=== PATIENT | male | born 1965 | race Caucasian/White ===

== ENCOUNTER 2019-04-23 11:08 | Emergency (ER) | payer MEDICAID ==
[~2019-04-23] VITALS: Ht 170.2 cm; Wt 81.6 kg
[~2019-04-23 11:08] MED LIST: ACE3T; IBUP200C3
[2019-04-23 12:03] LABS: Basophils # (auto) 0.1 uL; Basophils % (auto) 0.7 % (0.0-2.0); Eosinophils # (auto) 0.3 uL; Eosinophils % (auto) 4.1 % (0.0-7.0); Hematocrit 47.4 % (41.0-53.0); Hemoglobin 15.9 g/dL (13.5-17.5); Lymphocytes # (auto) 1.7 uL; Lymphocytes % (auto) 22.1 % (10.0-50.0); Mean Corpuscular Hemoglobin 29.2 pg (28.0-32.0); Mean Corpuscular Hgb Conc. 33.6 g/dL (32.0-36.0); Mean Corpuscular Volume 86.8 fL (80.0-100.0); Monocytes # (auto) 0.7 uL; Monocytes % (auto) 9.2 % (0.0-12.0); Neutrophils % (auto) 63.9 % (37.0-80.0); Nucleated Red Blood Cells % 0.1 %; Platelet Count (auto) 253 10^3/uL (140-450); Red Blood Cells 5.46 10^6/uL (4.5-5.90); Red Cell Distribution Width 14.2 % (11.8-14.3); White Blood Cell 7.7 10^3/uL (4.4-10.8)
[2019-04-23 12:22] LABS: Albumin 3.5 g/dL (3.4-5.0); Anion Gap 7 (5-15); Blood Urea Nitrogen 15 mg/dL (7-18); Calcium 8.7 mg/dL (8.5-10.1); Carbon Dioxide 27 mmol/L (21-32); Chloride 108 mmol/L (98-107); Glucose 102 mg/dL (74-106); Magnesium 2.4 mg/dL (1.6-2.6); Potassium 3.5 mmol/L (3.5-5.1); Sodium 142 mmol/L (136-145)
[2019-04-23 12:27] LABS: Alanine Aminotransferase 50 U/L (16-61); Alkaline Phosphatase 98 U/L (45-117); Aspartate Aminotransferase 32 U/L (15-37); BUN/Creatinine Ratio 10.1; Bilirubin, Total 0.5 mg/dL (0.2-1.0); GFR African American 64 mL/min; GFR Non-African American 53 mL/min; Total Protein 7.6 g/dL (6.4-8.2)
[2019-04-23 13:51] VITALS: BP 117/71
== END 2019-04-23 14:02 | disposition home or self-care (01) ==
LOC: ER 11:08
DX: F15.10 Other stimulant abuse, uncomplicated (principal); F17.210 Nicotine dependence, cigarettes, uncomplicated
CPT/HCPCS: 36415; 71046; 80053; 83735; 83880; 84484; 85025; 93005; 94761

== ENCOUNTER 2024-12-02 14:03 | Inpatient (IN) | payer MEDICAID ==
[~2024-12-02] VITALS: Ht 170.2 cm; Wt 93.3 kg
--- NOTE | 2024-12-02 14:22 | ED.PDOC ---
SOB-HPI HPI Comments 59 year old male presents to the ED with chief complaint of SOB. Patient reports that he has been experiencing SOB with associated bilateral leg swelling for the past 2 days. Patient relays that he has history of CHF and COPD. Patient relays that he had a dose of Lasix last night. Patient noted to be 94% on RA, but on 1L of O2 via NC it went up to 95%. Patient denies any N/V/D, chest pain, dizziness, headache, cough, or fever. Time Seen by MD: 14:18 Primary Care Provider: HIEN Reviewed notes: Nurses Notes, Medications, Allergies Information Source: Patient Mode of Arrival: Ambulatory Severity: Moderate Timing: Days Duration: Since onset Context: At Rest PE Risk Factors: None History of: COPD, CHF Prehospital treatment: Oxygen Modifying Factors: Nothing Past Medical History PAST MEDICAL HISTORY: CHF, COPD, HTN Surgical History: Denies all surgeries Family History Family History: Unobtainable Social History Smoker: Cigarettes, Less Than 1 Pack/Day Alcohol: Denies ETOH Use Drugs: Methamphetamine Lives In: Other Constitutional: denies: chills, diaphoresis, fatigue, fever, malaise, sweats, weakness, others EENTM: denies: blurred vision, double vision, ear bleeding, ear discharge, ear drainage, ear pain, ear ringing, eye pain, eye redness, hearing loss, mouth pain, mouth swelling, nasal discharge, nose bleeding, nose congestion, nose pain, photophobia, tearing, throat pain, throat swelling, voice changes, others Respiratory: reports: shortness of breath; denies: cough, hemoptysis, orthopnea, SOB at rest, SOB with excertion, stridor, wheezing, others Cardiovascular: reports: edema; denies: chest pain, dizzy spells, diaphoresis, Dyspnea on exertion, irregular heart beat, left arm pain, lightheadedness, palpitations, PND, syncope, others Gastrointestinal: denies: abdomen distended, abdominal pain, blood streaked bowels, constipated, diarrhea, dysphagia, difficulty swallowing, hematemesis, melena, nausea, poor appetite, poor fluid intake, rectal bleeding, rectal pain, vomiting, others Genitourinary: denies: burning, dysuria, flank pain, frequency, hematuria, incontinence, penile discharge, penile sore, pain, testicle pain, testicle swelling, urgency, others Neurological: denies: dizziness, fainting, headache, left sided numbness, left sided weakness, numbness, paresthesia, pre-existing deficit, right sided num bness, right sided weakness, seizure, speech problems, tingling, tremors, weakness, others Musculoskeletal: denies: back pain, gout, joint pain, joint swelling, muscle pain, muscle stiffness, neck pain, others Integumetry: denies: bruises, change in color, change in hair/nails, dryness, laceration, lesions, lumps, rash, wounds, others Allergic/Immunocompromised: denies: Difficulty Healing, Frequent Infections, Hives, Itching, others Hematologic/Lymphatic: denies: anemia, blood clots, easy bleeding, easy bruising, swollen glands, others Endocrine: denies: excessive hunger, excessive sweating, excessive thirst, excessive urination, flushing, intolerance to cold, intolerance to heat, unexplained weight gain, unexplained weight loss, others Psychiatric: denies: anxiety, bipolar disorder, depression, hopeless, panic disorder, schizophrenia, sleepless, suicidal, others All Other Systems: Reviewed and Negative Physical Exam General Appearance: Moderate Distress, Normal HEENT: Normal ENT Inspection, PERRL/EOMI Neck: Full Range of Motion, Non-Tender, Normal, Normal Inspection Respiratory: Chest Non-Tender, Lungs Clear, No Accessory Muscle Use, No Respiratory Distress, Normal Breath Sounds Cardiovascular: No Edema, No JVD, No Murmur, No Gallop, Normal Peripheral Pulses, Regular Rate/Rhythm Breast Exam: Deferred Gastrointestinal: No Organomegaly, Non Tender, No Pulsatile Mass, Normal Bowel Sounds, Soft Genitalia: Deferred Pelvic: Deferred Rectal: Deferred Extremities: No calf tenderness, Normal capillary refill, Normal range of motion, Non-tender, Swelling (Bilateral lower extremity) Musculoskeletal : Apperance: Normal Neurologic: Alert, door tender II-XII nml as Tested, No Motor Deficits, Normal Affect, Normal Mood, No Sensory Deficits Cerebellar Function: NOT DONE Reflexes: NOT DONE Skin: Dry, Normal Color, Warm Peripheral Pulses: 3+ Radial (R), 3+ Radial (L) Lymphatic: No Adenopathy Was a procedure done? Was a procedure done?: No Differential Dx Differential Diagnosis: Anxiety, Asthma, Bronchitis, CHF, COPD X-Ray, Labs, Meds, VS Vital Signs Date Time Temp Pulse Resp B/P (MAP) Pulse Ox O2 Delivery O2 Flow Rate FiO2 12/02/24 14:30 28 94 Room Air* 0 21 12/02/24 14:12 98.7 110 28 129/95 (106) 95 Lab Test 12/02/24 14:48 Range/Units White Blood Count 7.4 4.4-10.8 10^3/uL Red Blood Count 4.93 4.5-5.90 10^6/uL Hemoglobin 14.6 13.5-17.5 g/dL Hematocrit 45.1 41.0-53.0 % Mean Corpuscular Volume 91.6 80.0-100.0 fL Mean Corpuscular Hemoglobin 29.7 28.0-32.0 pg Mean Corpuscular Hemoglobin Concent 32.4 32.0-36.0 g/dL Red Cell Distribution Width 15.6 H 11.8-14.3 % Platelet Count 278 140-450 10^3/uL Mean Platelet Volume 8.0 6.9-10.8 fL Neutrophils (%) (Auto) 70.4 37.0-80.0 % Lymphocytes (%) (Auto) 16.0 10.0-50.0 % Monocytes (%) (Auto) 11.2 0.0-12.0 % Eosinophils (%) (Auto) 1.8 0.0-7.0 % Basophils (%) (Auto) 0.6 0.0-2.0 % Neutrophils # (Auto) 5.2 1.6-8.6 10 ^3/uL Lymphocytes # (Auto) 1.2 0.4-5.4 10 ^3/uL Monocytes # (Auto) 0.8 0-1.3 10 ^3/uL Eosinophils # (Auto) 0.1 0-0.8 10 ^3/uL Basophils # (Auto) 0 0-0.2 10 ^3/uL Nucleated Red Blood Cells 0.3 % Sodium Level Pending Potassium Level Pending Chloride Level Pending Carbon Dioxide Level Pending Anion Gap Pending Blood Urea Nitrogen Pending Creatinine Pending Glomerular Filtration Rate Calc Pending BUN/Creatinine Ratio Pending Serum Glucose Pending Calcium Level Pending Troponin I High Sensitivity Pending B-Type Natriuretic Peptide Pending Chest XR: FINDINGS: Lines and Tubes: None Lungs: Congestion Pleura: No effusion. No pneumothorax. Cardiomediastinal contours: Cardiomegaly Bones: Unremarkable IMPRESSION: Congestion Patient alert. Complaining of shortness a breath. Bilateral lower extremity swelling. Vitals stable. No acute process. Chest x-ray does show congestion. Was given Lasix. Abdomen is distended. Right-sided heart failure. EKG reviewed does not show any acute changes. Explained to the patient. Continue cardiac monitoring. Images Reviewed?: Images reviewed and evaluated by me Time of 1ST Reevaluation: 15:18 Reevaluation 1ST: Unchanged Patient Education/Counseling: Diagnosis, Treatment Family Education/Counseling: No Family Present Additional Information I reviewed the following notes from patient's past medical encounters: 04/23/19 for methamphetamine abuse The following tests were ordered, and results were reviewed by me: CBC, BMP, UA, Troponin, UDS Additional Information was gathered from interviewing the following independent historians: None I reviewed and agreed with the following test results read by other providers: None I discussed treatment and results with medical personnel. Departure 1 Departure Time of Disposition: 15:21 Impression: Primary Impression: CHF (congestive heart failure) Qualified Codes: I50.43 - Acute on chronic combined systolic (congestive) and diastolic (congestive) heart failure Disposition: ADMITTED INPATIENT Admit to: Med Surg Condition: Guarded Critical Care Note Critical Care Time?: Yes (45 min-critical care time only) Critical care comment: CHF Was given Lasix. Stability Stability form required: No Heart Score Heart Score: Heart Score Response (Comments) Value History Highly Suspicious 2 EKG Repolarization Disturb 1 Age 45-64 1 Risk Factors >3 or Hx ASHD 2 Troponin Normal limit 0 Total 6 I personally scribed for BRIANNA LORA MD ([email or web address]) on 12/02/24 at 14:22. Electronically submitted by Gregorio Tate ([email or web address]). I personally scribed for BRIANNA LORA MD ([email or web address]) on 12/02/24 at 14:38. Electronically submitted by Gregorio Tate ([email or web address]). BRIANNA LORA MD Dec 02, 2024 14:22
--- NOTE | 2024-12-02 14:36 | DVH ---
CHEST RADIOGRAPH Indication: sob Technique: Single frontal view of the chest was obtained COMPARISON: None FINDINGS: Lines and Tubes: None Lungs: Congestion Pleura: No effusion. No pneumothorax. Cardiomediastinal contours: Cardiomegaly Bones: Unremarkable IMPRESSION: Congestion
[2024-12-02 15:03] LABS: Basophils # (auto) 0 10 ^3/uL (0-0.2); Basophils % (auto) 0.6 % (0.0-2.0); Eosinophils # (auto) 0.1 10 ^3/uL (0-0.8); Eosinophils % (auto) 1.8 % (0.0-7.0); Hematocrit 45.1 % (41.0-53.0); Hemoglobin 14.6 g/dL (13.5-17.5); Lymphocytes # (auto) 1.2 10 ^3/uL (0.4-5.4); Mean Corpuscular Hemoglobin 29.7 pg (28.0-32.0); Mean Corpuscular Hgb Conc. 32.4 g/dL (32.0-36.0); Mean Corpuscular Volume 91.6 fL (80.0-100.0); Monocytes # (auto) 0.8 10 ^3/uL (0-1.3); Monocytes % (auto) 11.2 % (0.0-12.0); Neutrophils # (auto) 5.2 10 ^3/uL (1.6-8.6); Neutrophils % (auto) 70.4 % (37.0-80.0); Nucleated Red Blood Cells % 0.3 %; Platelet Count (auto) 278 10^3/uL (140-450); Red Blood Cells 4.93 10^6/uL (4.5-5.90); Red Cell Distribution Width 15.6 % (11.8-14.3); White Blood Cell 7.4 10^3/uL (4.4-10.8)
[2024-12-02 15:14] LABS: Chloride 107 mmol/L (98-107); Potassium 4.7 mmol/L (3.5-5.1); Sodium 138 mmol/L (136-145)
[2024-12-02 15:15] LABS: Anion Gap 9 (5-15); Carbon Dioxide 22 mmol/L (20-31)
[2024-12-02 15:20] LABS: BUN/Creatinine Ratio 21.1 (10.0-20.0); Glucose 93 mg/dL (74-106)
[2024-12-02 15:23] LABS: Blood Urea Nitrogen 38 mg/dL (9-23)
[2024-12-02] MEDS: FUROSEMIDE 40 MG/4 ML VIAL IV ONE (16:44)
[2024-12-02 19:28] LABS: Urine Bacteria None Seen /hpf (None Seen)
[2024-12-02] MEDS ORDERED: NITROGLYCERIN 0.4 MG SL TAB SL PRN (19:30)
[2024-12-02] MEDS ORDERED: ONDANSETRON HCL 4 MG/2 ML VIAL IV PRN (19:30)
[2024-12-02] MEDS ORDERED: ACETAMINOPHEN 325 MG TAB PO PRN (19:30)
[2024-12-02] MEDS ORDERED: MORPHINE SULFATE INJ 2 MG/ml SYRG IV PRN (19:30)
[2024-12-02 19:46] LABS: Urine Blood Negative /uL (Negative); Urine Clarity Clear (Clear); Urine Color Light-Yellow (Yellow); Urine Hyaline Cast FEW /lpf (0 - 2); Urine Protein, UAD Negative (Negative); Urine Specific Gravity 1.008 (1.001-1.035); Urine Squamous Epithelial Cell None Seen /hpf (<5); Urine Urobilinogen Normal (Negative); Urine WBC < 1 /HPF (0-3)
[2024-12-02 20:09] VITALS: BP 122/60; PULSE 105; RESP 18; O2SAT 99
[2024-12-02 21:30] VITALS: PULSE 116; RESP 18; O2SAT 96
[2024-12-02] MEDS: METOPROLOL TARTRATE 25 MG TAB PO SCH (22:10)
[2024-12-02 23:52] VITALS: BP 98/56; PULSE 67; PULSE 86; RESP 20; TEMP 98.8; O2SAT 94
[2024-12-03] VITALS (14 sets, daily range): BP systolic 93–120; BP diastolic 44–72; PULSE 62–87; RESP 14–20; TEMP 97.5–98.8; O2SAT 93–100
[2024-12-03] MEDS: ALBUTEROL SULF 2.5 MG/0.5ML(0.5%) NEB SOLN NEB PRN (00:38)
[2024-12-03] MEDS: TEMAZEPAM 15 MG CAP PO PRN (00:43)
--- NOTE | 2024-12-03 00:49 | DVHHP2 ---
History of Present Illness Reason for Visit: Shortness for breath History of Present Illness 59-year-old male with a history of COPD and congestive heart failure presents for evaluation of shortness for breath. Patient reports a three day history of worsening shortness for breath with associated chest tightness, nonproductive cough and lower extremity swelling. Denies fever or chills. No other acute complaints reported. Past Medical History Hypertension, COPD and congestive heart failure Past Surgical History Denies Family History Noncontributory Smoke: <1 pack per day ALCOHOL: occassional Drugs: Other (Methamphetamine) Review of Systems Review of Systems Review of systems are currently negative otherwise addressed in HPI. Allergies: Coded Allergies: Banana (Verified Allergy, Unknown, 04/23/19) Cephalexin (Verified Allergy, Unknown, 02/22/12) Uncoded Allergies: GRAPES (Allergy, Unknown, 04/23/19) KIWI (Allergy, Unknown, 04/23/19) Medications Current Medications Medications Dose Ordered Sig/Adrian Route Start Time Stop Time Status Last Admin Dose Admin Aspirin 81 mg DAILY PO 12/03/24 10:00 Metoprolol Tartrate 25 mg BID PO 12/02/24 22:00 12/02/24 22:10 25 MG Losartan Potassium 50 mg DAILY PO 12/03/24 10:00 Furosemide 20 mg DAILY IV 12/03/24 10:00 Albuterol 2.5 mg Q6HPRN PRN NEB 12/02/24 19:30 12/03/24 00:38 2.5 MG Temazepam 15 mg QHSP PRN PO 12/02/24 19:30 12/03/24 00:43 15 MG Ondansetron HCl 4 mg Q4HP PRN IV 12/02/24 19:30 Acetaminophen 650 mg Q6HP PRN PO 12/02/24 19:30 Nitroglycerin 0.4 mg Q5MINP PRN SL 12/02/24 19:30 Morphine Sulfate 2 mg Q30M PRN IV 12/02/24 19:30 Exam Vital Signs Vital Signs Date Time Temp Pulse Resp B/P (MAP) Pulse Ox O2 Delivery O2 Flow Rate FiO2 12/02/24 23:10 67 98/56 12/02/24 23:00 18 96 12/02/24 21:30 Nasal Cannula* 4 36 12/02/24 16:44 97.9 97.9 Exam Gen: 59-year-old male in mild distress Skin: Warm, dry, normal color and texture, no rash. HEENT: Normocephalic atraumatic, mucous membranes moist and pink. Neck: Cervical and supraclavicular nodes normal without enlargement, trachea is midline, thyroid gland is normal without masses. Pulmonary: Clear to auscultation and percussion bilaterally. Cardiac: Regular rate and rhythm. No murmur Abdomen: Soft, nontender, nondistended, bowel sounds present all 4 quadrants, no guarding, no rigidity, no organomegaly. Extremities: No cyanosis, clubbing, bilateral plus two lower extremity edema Neuro: Cranial nerves II through XII grossly intact, normal affect and speech, no focal motor deficits. Labs/Xrays ORDERING PHYSICIAN: BRIANNA LORA MD PROCEDURE(s): CXRP - CHEST PORTABLE REASON: sob ORDER NUMBER(s): [id number], ACCESSION NUMBER(s): [id number] CHEST RADIOGRAPH Indication: sob Technique: Single frontal view of the chest was obtained COMPARISON: None FINDINGS: Lines and Tubes: None Lungs: Congestion Pleura: No effusion. No pneumothorax. Cardiomediastinal contours: Cardiomegaly Bones: Unremarkable IMPRESSION: Congestion Labs Test 12/02/24 14:48 12/02/24 14:42 Range/Units White Blood Count 7.4 4.4-10.8 10^3/uL Red Blood Count 4.93 4.5-5.90 10^6/uL Hemoglobin 14.6 13.5-17.5 g/dL Hematocrit 45.1 41.0-53.0 % Mean Corpuscular Volume 91.6 80.0-100.0 fL Mean Corpuscular Hemoglobin 29.7 28.0-32.0 pg Mean Corpuscular Hemoglobin Concent 32.4 32.0-36.0 g/dL Red Cell Distribution Width 15.6 H 11.8-14.3 % Platelet Count 278 140-450 10^3/uL Mean Platelet Volume 8.0 6.9-10.8 fL Neutrophils (%) (Auto) 70.4 37.0-80.0 % Lymphocytes (%) (Auto) 16.0 10.0-50.0 % Monocytes (%) (Auto) 11.2 0.0-12.0 % Eosinophils (%) (Auto) 1.8 0.0-7.0 % Basophils (%) (Auto) 0.6 0.0-2.0 % Neutrophils # (Auto) 5.2 1.6-8.6 10 ^3/uL Lymphocytes # (Auto) 1.2 0.4-5.4 10 ^3/uL Monocytes # (Auto) 0.8 0-1.3 10 ^3/uL Eosinophils # (Auto) 0.1 0-0.8 10 ^3/uL Basophils # (Auto) 0 0-0.2 10 ^3/uL Nucleated Red Blood Cells 0.3 % Sodium Level 138 136-145 mmol/L Potassium Level 4.7 3.5-5.1 mmol/L Chloride Level 107 98-107 mmol/L Carbon Dioxide Level 22 20-31 mmol/L Anion Gap 9 5-15 Blood Urea Nitrogen 38 H 9-23 mg/dL Creatinine 1.80 H 0.700-1.30 mg/dL Glomerular Filtration Rate Calc 43 >90 mL/min BUN/Creatinine Ratio 21.1 H 10.0-20.0 Serum Glucose 93 74-106 mg/dL Calcium Level 10.0 8.7-10.4 mg/dL Troponin I High Sensitivity 51 </=54 ng/L B-Type Natriuretic Peptide 693.72 0-100 pg/mL Urine Color Light-yellow Yellow Urine Clarity Clear Clear Urine pH 5.0 5.0-9.0 Urine Specific Skippers 1.008 1.001-1.035 Urine Protein Negative Negative Urine Ketones Negative Negative Urine Blood Negative Negative /uL Urine Nitrite Negative Negative Urine Bilirubin Negative Negative Urine Urobilinogen Normal Negative mg/dL Urine Leukocyte Esterase Negative Negative /uL Urine RBC None seen 0 - 3 /hpf Urine Microscopic WBC < 1 0-3 /HPF Urine Squamous Epithelial Cells None seen <5 /hpf Urine Bacteria None seen None Seen /hpf Urine Hyaline Casts Few 0 - 2 /lpf Urine Glucose Normal Normal mg/dL Assessment/Plan Assessment/Plan Assessment Acute on chronic congestive heart failure Hypertension COPD Possible drug-induced cardiomyopathy Plan Admit the patient to [facility] to the hospitalist Rip obriens IV Lasix Echocardiogram pending Resume home medications Continue treatment per orders Plan discussed with: Patient My Orders Orders - TEDDY SHEPARD Procedure Category Date Status Time Aspirin Tablet PHA 12/03/24 In Process 10:00 Metoprolol Tartrate PHA 12/02/24 In Process Tablet (Lopressor Ta 22:00 Losartan Tablet PHA 12/03/24 In Process (Cozaar Tablet) 10:00 Furosemide Injection PHA 12/03/24 In Process (Lasix Injection) 10:00 Albuterol Medneb PHA 12/02/24 In Process (Ventolin Medneb) 19:30 Basic Metabolic Panel LAB 12/03/24 Logged 04:00 Admit ADMIT 12/02/24 Transmitted 19:30 Temazepam (Restoril) PHA 12/02/24 In Process 19:30 Ondansetron Hcl PHA 12/02/24 In Process (Zofran) 19:30 Cardiac DIET 12/03/24 Transmitted Diet-2gna,Lofat,Lochol Breakfast Echo 2d Mode Cardiac US 12/02/24 Logged DOP 19:30 Condition: Stable ADOLFO 12/02/24 In Process 19:30 Acetaminophen Tablet PHA 12/02/24 In Process (Tylenol Tablet) 19:30 Bedrest With Bathroom ADOLFO 12/02/24 In Process Privileg 19:30 Nitroglycerin PHA 12/02/24 In Process Sublingual (Ntrostat 19:30 Morphine Sulfate PHA 12/02/24 In Process Injection 19:30 Stat Ekg For Chest ADOLFO 12/02/24 In Process Pain 19:30 Notify Of Changes ADOLFO 12/02/24 In Process From Base 19:30 Driller Multiple Spindle For ADOLFO 12/02/24 In Process 24 Hours 19:30 Emergency Dysrhythmia ADOLFO 12/02/24 In Process Protocol 19:30 Rhythm Strips Once ADOLFO 12/02/24 In Process Every Shift 19:30 Oxygen By Nasal RT 12/02/24 Transmitted Cannula 19:30 Furosemide Injection PHA 12/03/24 Verified (Lasix Injection) 01:00 Date of Service: Dec 02, 2024 Billing Provider: TEDDY SHEPARD Common Visit Codes: [id number] INP/OBS CARE (HIGH) TEDDY SHEPARD Dec 03, 2024 00:49
[2024-12-03] MEDS: FUROSEMIDE 20 MG/2 ML VIAL IV SCH ×2 (01:29→15:04)
[2024-12-03 07:05] LABS: Chloride 103 mmol/L (98-107); Potassium 4.1 mmol/L (3.5-5.1); Sodium 139 mmol/L (136-145)
[2024-12-03 07:06] LABS: Anion Gap 9 (5-15); Calcium 9.5 mg/dL (8.7-10.4); Carbon Dioxide 27 mmol/L (20-31)
[2024-12-03 07:11] LABS: BUN/Creatinine Ratio 17.9 (10.0-20.0); Blood Urea Nitrogen 34 mg/dL (9-23); Glucose 98 mg/dL (74-106)
[2024-12-03 09:16] LABS: Hepatitis B Surface Antigen Negative (Negative); Hepatitis C Antibody Negative (Negative)
[2024-12-03] MEDS: ASPirin 81 mg TAB PO SCH (09:19)
[2024-12-03] MEDS: LOSARTAN POTASSIUM 50 MG TAB PO SCH (09:20)
[2024-12-03] MEDS ORDERED: FUROSEMIDE 20 MG/2 ML VIAL IV SCH (10:00)
--- NOTE | 2024-12-03 11:55 | DVHSR ---
APPROVED REPORT EXAM: Two-dimensional and M-mode echocardiogram with Doppler and color Doppler. Blood Pressure: 93/62 mmHg INDICATION ef RISK FACTORS Obesity: Height: 5'7, Weight: 214 DIMENSIONS LVDd7.0 (3.8-5.7cm)LA (2D)3.0 (1.9-4.0cm)Aortic Root3.1 (2.0-3.7cm) LVDs6.3 (2.5-4.0cm)LA (MM) (1.9-4.0cm)Aortic Cusp Exc1.8 (1.5-2.0cm) EF (%) 15.0 (55-70%)Rt. Atrium5.3 (1.9-4.0cm)Asc. Aorta3.4 cm IVSd0.8 (0.7-1.1cm)RV (D)6.1 (1.8-2.4cm) PWd1.0 (0.7-1.1cm) Mitral Valve MitralMitral Stenosis E wave0.75m/sMV Mean GR.mmHg A wave0.73m/sMV Peak GR.63mmHg E/A ratio1.02D MVAcm2 DECEL [id number] 1/2 Timems Aortic Valve Aortic ValveAortic Stenosis V10.69m/Yelitza Mean GR.3mmHg V21.16m/Yelitza Peak GR.5mmHg LVOT Diameter1.8 (1.8-2.4cm)Doppler AVA1.51cm2 Pulmonic Valve V20.71m/s Tricuspid Valve TR Velocity2.63m/s [id number] LEFT VENTRICLE The left ventricl is severely dilated in size. Left ventricular wall thickness is normal. Ejection fraction is estimated at 10-15%. There is severe global hypokinesis. There is evidence of intravent ricular septal bounce. LV apical thrombus can not be excluded. There is grade II diastolic dysfunct ion with evidence of elevated left-sided filling pressure. RIGHT VENTRICLE The right ventricle is severely dilated in size. The systolic function is severely decreased. ATRIA The left atrium is mildly dilated in size. Right atrium is severely dilated in size. The intra-atri al septum is not well visualized. MITRAL VALVE Leaflets are mildly thickened. There is [id number] central mitral regurgitation. PULMONIC VALVE Likely normal. TRICUSPID VALVE There is [id number] tricuspid regurgitation. PA systolic pressure is estimated at 45-50 mm Hg. AORTIC VALVE Normal structure and function. GREAT VESSELS The aortic root is of normal size. PERICARDIAL EFFUSION No significant pericardial effusion. IVC is dilated in size and does not collapse with inspiration. Conclusion Severely dilated left ventricular chamber size with a severely decreased systolic function. There is severe global hypokinesis with an ejection fraction of 10-15%. Severely dilated right ventricle with a severely decreased systolic function. Grade II diastolic dysfunction with evidence of elevated left-sided filling pressure. [id number] mitral regurgitation and tricuspid regurgitation. PA systolic pressure is estimated at 45-50 mm Hg. There is no prior study for comparison.
--- NOTE | 2024-12-03 14:24 | DVHINCON2 ---
Date Seen: Dec 03, 2024 Referring Physician MD Juliet Reason for Consultation CHF History of Present Illness This is a 59-year-old male patient who presents to emergency room with chief complaint of worsening shortness of breath and bilateral lower extremity edema for three days. The patient reports that he has a known history of congestive heart failure and states he tries to be as compliant as possible with his med ications, but sometimes stops taking his diuretic because it makes him go to the bathroom too many times. He also reports noncompliance with fluid restriction, and states that sometimes he drinks as much as 3 L of fluid per day. Cardiology has now been consulted for CHF. Initial twelve lead electrocardiogram reveals sinus tachycardia with PVC and prolonged QTc interval. Initial troponin level of 51ng/L. Initial BNP level of 693.72pg/mL. The patient denies any chest pain. Significant past medical history includes congestive heart failure, hypertension, COPD, tobacco use, methamphetamine abuse, and obesity. The patient denies following up with a coding coordinator in the outpatient setting. He reports he is currently living out of his car. Past Medical History Past medical history reviewed. No other significant than mentioned above. Past Surgical History Denies all previous surgeries Family History Family history reviewed. Social History Patient has a 17.5 pack-year history, smokes approximately half a pack per day Patient admits to recent methamphetamine use, within the last week Patient denies any alcohol use Allergies: Coded Allergies: Banana (Verified Allergy, Unknown, 04/23/19) Cephalexin (Verified Allergy, Unknown, 02/22/12) Uncoded Allergies: GRAPES (Allergy, Unknown, 04/23/19) KIWI (Allergy, Unknown, 04/23/19) Home Meds Reported Medications Ibuprofen (Ibuprofen) 200 Mg Cap 02/22/12 Acetaminophen W/ Codeine (Tylenol W/Cod #3) 1 Tab Tb 02/22/12 Home Meds Home medications reviewed. Current Medications Current Medications Medications (Trade) Dose Ordered Sig/Adrian Route PRN Reason Start Time Stop Time Status Last Admin Aspirin 81 mg DAILY PO 12/03/24 10:00 12/03/24 09:19 Metoprolol Tartrate (Lopressor Tablet) 25 mg BID PO 12/02/24 22:00 12/03/24 09:20 Losartan Potassium (Cozaar Tablet) 50 mg DAILY PO 12/03/24 10:00 12/03/24 09:20 Furosemide (Lasix Injection) 20 mg DAILY IV 12/03/24 10:00 12/03/24 00:47 DC Albuterol (Ventolin Medneb) 2.5 mg Q6HPRN PRN NEB SHORTNESS OF BREATH 12/02/24 19:30 12/03/24 10:38 Temazepam (Restoril) 15 mg QHSP PRN PO FOR INSOMNIA 12/02/24 19:30 12/03/24 00:43 Ondansetron HCl (Zofran) 4 mg Q4HP PRN IV NAUSEA / VOMITING 12/02/24 19:30 Acetaminophen (Tylenol Tablet) 650 mg Q6HP PRN PO PAIN SCALE 1-3 OR TEMP>100.4 12/02/24 19:30 Nitroglycerin (Ntrostat Sublingual) 0.4 mg Q5MINP PRN SL FOR CHEST PAIN 12/02/24 19:30 Morphine Sulfate 2 mg Q30M PRN IV FOR CHEST PAIN 12/02/24 19:30 Furosemide (Lasix Injection) 20 mg BID IV 12/03/24 01:00 12/03/24 14:00 DC 12/03/24 09:21 Furosemide (Lasix Injection) 40 mg TID IV 12/03/24 14:00 UNV Review of Systems Constitutional: No symptom reported Ears, Nose, & Throat: No symptom reported Eyes: No symptom reported Neurological: No symptoms reported Pulmonary/Respiratory: Shortness of breath Cardiovascular: Bilateral lower extremity edema Gastrointestinal: No symptom reported Genitourinary: No symptom reported Musculoskeletal: No symptom reported Skin: No symptom reported Psychiatric: No symptom reported Endocrine: No symptom reported Hematologic/Lymphatic: No symptom reported Vital Signs Vital Signs Date Time Temp Pulse Resp B/P (MAP) Pulse Ox O2 Delivery O2 Flow Rate FiO2 12/03/24 10:35 100 Nasal Cannula* 2 28 12/03/24 10:35 79 14 12/03/24 09:21 108/72 12/03/24 05:00 98.6 98.6 Physical Exam General Appearance: Cooperative. Obese Pulmonary/Respiratory: Coarse bilateral upper lobe sounds Cardiovascular/Chest: Regular rate and rhythm. Peripheral Pulses: 2+ Radial (R). 2+ Radial (L). 1+ Pedal (R). 1+ Pedal (L) Abdominal Exam: Normal bowel sounds. Ankle Exam: 3+ pitting edema Lower extremities: 3+ pitting edema to bilateral lower extremities Neuro/Mental Status: A/OX4, coherent. Thoughts/Psych: Normal thought pattern. Appropriate mood and affect. Good judgment and insight. Appearance: No acute distress. Skin Exam: Hyperpigmentation to bilateral lower extremities. Skin warm and dry Labs/Diagnostic Data Labs Test 12/03/24 06:16 12/02/24 14:48 12/02/24 14:42 Range/Units Sodium Level 139 136-145 mmol/L Potassium Level 4.1 3.5-5.1 mmol/L Chloride Level 103 98-107 mmol/L Carbon Dioxide Level 27 20-31 mmol/L Anion Gap 9 5-15 Blood Urea Nitrogen 34 H 9-23 mg/dL Creatinine 1.90 H 0.700-1.30 mg/dL Glomerular Filtration Rate Calc 40 >90 mL/min BUN/Creatinine Ratio 17.9 10.0-20.0 Serum Glucose 98 74-106 mg/dL Calcium Level 9.5 8.7-10.4 mg/dL Hepatitis B Surface Antigen Negative Negative Hepatitis C Antibody Negative Negative White Blood Count 7.4 4.4-10.8 10^3/uL Red Blood Count 4.93 4.5-5.90 10^6/uL Hemoglobin 14.6 13.5-17.5 g/dL Hematocrit 45.1 41.0-53.0 % Mean Corpuscular Volume 91.6 80.0-100.0 fL Mean Corpuscular Hemoglobin 29.7 28.0-32.0 pg Mean Corpuscular Hemoglobin Concent 32.4 32.0-36.0 g/dL Red Cell Distribution Width 15.6 H 11.8-14.3 % Platelet Count 278 140-450 10^3/uL Mean Platelet Volume 8.0 6.9-10.8 fL Neutrophils (%) (Auto) 70.4 37.0-80.0 % Lymphocytes (%) (Auto) 16.0 10.0-50.0 % Monocytes (%) (Auto) 11.2 0.0-12.0 % Eosinophils (%) (Auto) 1.8 0.0-7.0 % Basophils (%) (Auto) 0.6 0.0-2.0 % Neutrophils # (Auto) 5.2 1.6-8.6 10 ^3/uL Lymphocytes # (Auto) 1.2 0.4-5.4 10 ^3/uL Monocytes # (Auto) 0.8 0-1.3 10 ^3/uL Eosinophils # (Auto) 0.1 0-0.8 10 ^3/uL Basophils # (Auto) 0 0-0.2 10 ^3/uL Nucleated Red Blood Cells 0.3 % Troponin I High Sensitivity 51 </=54 ng/L B-Type Natriuretic Peptide 693.72 0-100 pg/mL Urine Color Light-yellow Yellow Urine Clarity Clear Clear Urine pH 5.0 5.0-9.0 Urine Specific [place] 1.008 1.001-1.035 Urine Protein Negative Negative Urine Ketones Negative Negative Urine Blood Negative Negative /uL Urine Nitrite Negative Negative Urine Bilirubin Negative Negative Urine Urobilinogen Normal Negative mg/dL Urine Leukocyte Esterase Negative Negative /uL Urine RBC None seen 0 - 3 /hpf Urine Microscopic WBC < 1 0-3 /HPF Urine Squamous Epithelial Cells None seen <5 /hpf Urine Bacteria None seen None Seen /hpf Urine Hyaline Casts Few 0 - 2 /lpf Urine Glucose Normal Normal mg/dL Assessment Acute on chronic decompensated HFrEF, NYHA class III Biventricular heart failure Mitral and tricuspid regurgitation, mild to moderate degree Hypertension Pulmonary hypertension Acute kidney injury Methamphetamine abuse Tobacco use Medical noncompliance Morbid obesity Plan/Recommendation We will continue with the following plan/recommendations (Dr. Parham): * Echocardiogram reveals EF 10-15%, RVSP 45-50mmHg * Initiate guideline directed medical therapy for CHF as tolerated * Consider MRA and SGLT2i with improved creatinine * Strict intake and output, daily weights, maintain fluid restriction * Aggressive diuresis as tolerated * Risk factor modifications, counseled * Adherence to medication regimen * Cessation of methamphetamine and tobacco use Patient seen and examined at bedside with . At this time, we will continue conservative medical management. The patient will be initiated on guideline directed medical therapy for CHF as tolerated. We will recommend aggressive diuresis as tolerated. If no improvement in EF within 3-6 months on GDMT, the patient may eventually qualify for ICD placement. Thank you for allowing us to care for this patient. Please call with any questions or concerns. Critical care time spent: 44 minutes This medical document was created using an electronic medical record system with voice recognition software and computerized dictation system. Although this document has been carefully reviewed, there might still be some phonetic and typographical errors. Occasional wrong-word or ``sound-alike substitutions may have occurred due to the inherent limitations of voice recognition software. These areas are purely typographical due to imperfections of the software programs and do not reflect any compromise in the patient's medical care. Please read the chart carefully and recognize, using context, where these substitutions have occurred. Plan discussed with: Patient NYHA Physical activity limitations: Class3(Marked) ordinary (activity causes symtoms) Date of Service: Dec 03, 2024 Billing Provider: WYATT PARHAM MD Cardiology Common Codes: [id number] INP/OBS CARE (High) Cardiology Consultation Codes: [id number] CONSULT <45MIN JAMES RAYGOZA Dec 03, 2024 14:24
--- NOTE | 2024-12-03 15:08 | DVH ---
ULTRASOUND ABDOMEN LIMITED INDICATION: rule out ascites TECHNIQUE: Ultrasound of the 4 quadrants of the abdominal cavity. COMPARISON: None FINDINGS: There is very small amount of ascites seen in the right upper, right lower and left upper quadrant. IMPRESSION: 1. Small amount of ascites. HS:Y
[2024-12-04] VITALS (8 sets, daily range): BP systolic 113–131; BP diastolic 50–91; PULSE 70–84; RESP 18–20; TEMP 97–98.8; O2SAT 92–100
[2024-12-04 07:30] LABS: Basophils # (auto) 0 10 ^3/uL (0-0.2); Basophils % (auto) 0.6 % (0.0-2.0); Eosinophils # (auto) 0.2 10 ^3/uL (0-0.8); Hematocrit 46.7 % (41.0-53.0); Hemoglobin 15.3 g/dL (13.5-17.5); Lymphocytes # (auto) 1.4 10 ^3/uL (0.4-5.4); Lymphocytes % (auto) 17.6 % (10.0-50.0); Mean Corpuscular Hgb Conc. 32.8 g/dL (32.0-36.0); Mean Corpuscular Volume 91.4 fL (80.0-100.0); Monocytes # (auto) 0.9 10 ^3/uL (0-1.3); Monocytes % (auto) 11.8 % (0.0-12.0); Neutrophils # (auto) 5.2 10 ^3/uL (1.6-8.6); Nucleated Red Blood Cells % 0.1 %; Platelet Count (auto) 274 10^3/uL (140-450); Red Blood Cells 5.11 10^6/uL (4.5-5.90); Red Cell Distribution Width 15.4 % (11.8-14.3); White Blood Cell 7.8 10^3/uL (4.4-10.8)
[2024-12-04 07:41] LABS: Anion Gap 8 (5-15); Carbon Dioxide 29 mmol/L (20-31); Chloride 100 mmol/L (98-107); Potassium 4.1 mmol/L (3.5-5.1); Sodium 137 mmol/L (136-145)
[2024-12-04 07:42] LABS: Calcium 9.7 mg/dL (8.7-10.4)
[2024-12-04 07:47] LABS: BUN/Creatinine Ratio 22.3 (10.0-20.0); Glucose 97 mg/dL (74-106); Triglycerides 102 mg/dL (< 150)
[2024-12-04 07:48] LABS: LDL Cholesterol 78 mg/dL (< 100); Magnesium 2.4 mg/dL (1.6-2.6)
[2024-12-04 07:49] LABS: Cholesterol 114 mg/dL (< 200)
[2024-12-04 07:50] LABS: Blood Urea Nitrogen 41 mg/dL (9-23); HDL Cholesterol 26 mg/dL (40-59)
--- NOTE | 2024-12-04 09:35 | ECG ---
[facility] Test Date: 2024-12-02 Test Time: 14:20:41 Pat Name: AMANDA ELLIS Department: ER Room: 0293 A Gender: M Hr Business Partner: : [id number] Requested By: BRIANNA LORA Order Number: [id number] Reading MD: Andrew Fink Measurements Intervals [place] Rate: 107 P: 74 UT: 158 QRS: 259 QRSD: 131 T: 70 QT: 390 QTc: 521 Interpretive Statements Sinus tachycardia Ventricular premature complex LAE, consider biatrial enlargement Nonspecific IVCD with LAD Electronically Signed On 12-04-2024 17:06:54 PST by Andrew Fink Please click the below link to view image of tracing.
--- NOTE | 2024-12-04 13:38 | DVHPN2 ---
Reviewed: Care Plan, H&P Changes from previous H/P or p: No Changes General: Per HPI Objective Vitals Vital Signs Date Time Temp Pulse Resp B/P (MAP) Pulse Ox O2 Delivery O2 Flow Rate FiO2 12/04/24 12:15 97.4 84 19 113/80 (91) 92 97.4 12/03/24 23:31 Nasal Cannula* 3 32 Intake/Output Intake and Output 12/04/24 07:00 Intake Total 1200 ml Output Total 1975 ml Balance -775 ml Intake Oral 1200 ml Output Urine Total 1975 ml # Bowel Movements 1 General Appearance: Alert, Oriented X3, Cooperative Lungs: Normal air movement Cardiovascular: Regular rate, Normal S1, Normal S2 Medications Current Medications Medications Dose Ordered Sig/Adrian Route Start Time Stop Time Status Last Admin Dose Admin Aspirin 81 mg DAILY PO 12/03/24 10:00 12/04/24 10:29 81 MG Metoprolol Tartrate 25 mg BID PO 12/02/24 22:00 12/04/24 10:29 25 MG Losartan Potassium 50 mg DAILY PO 12/03/24 10:00 12/04/24 10:29 50 MG Albuterol 2.5 mg Q6HPRN PRN NEB 12/02/24 19:30 12/03/24 10:38 2.5 MG Temazepam 15 mg QHSP PRN PO 12/02/24 19:30 12/03/24 21:23 15 MG Ondansetron HCl 4 mg Q4HP PRN IV 12/02/24 19:30 Acetaminophen 650 mg Q6HP PRN PO 12/02/24 19:30 Nitroglycerin 0.4 mg Q5MINP PRN SL 12/02/24 19:30 Morphine Sulfate 2 mg Q30M PRN IV 12/02/24 19:30 Furosemide 40 mg TID IV 12/03/24 14:00 12/04/24 05:53 40 MG Laboratory Results Laboratory Tests 12/04/24 04:00 12/04/24 06:08 Chemistry Test 12/04/24 06:08 Calcium Level 9.7 mg/dL (8.7-10.4) Magnesium Level 2.4 mg/dL (1.6-2.6) Lipid panel Test 12/04/24 06:08 Cholesterol Level 114 mg/dL (< 200) HDL Cholesterol 26 mg/dL (40-59) L Triglycerides Level 102 mg/dL (< 150) HgA1c, TSH Test 12/04/24 07:00 Hemoglobin A1c 7.0 % A1C (<5.7) H Thyroid Stimulating Hormone (TSH) 1.24 uIU/mL (0.55-4.78) Urinalysis Test 12/02/24 14:42 Urine Color Light-yellow (Yellow) Urine Clarity Clear (Clear) Urine pH 5.0 (5.0-9.0) Urine Specific [place] 1.008 (1.001-1.035) Urine Protein Negative (Negative) Urine Ketones Negative (Negative) Urine Blood Negative /uL (Negative) Urine Nitrite Negative (Negative) Urine Bilirubin Negative (Negative) Urine Urobilinogen Normal mg/dL (Negative) Urine Leukocyte Esterase Negative /uL (Negative) Urine RBC None seen /hpf (0 - 3) Urine Microscopic WBC < 1 /HPF (0-3) Urine Squamous Epithelial Cells None seen /hpf (<5) Urine Bacteria None seen /hpf (None Seen) Urine Hyaline Casts Few /lpf (0 - 2) Urine Glucose Normal mg/dL (Normal) Labs and/or images reviewed: Labs reviewed by me, Image(s) reviewed by me Assessment/Plan Assessment/Plan Acute on chronic congestive heart failure Hypertension COPD Possible drug-induced cardiomyopathy STEPHANIE cardiorenal syndrome 12/04/2024 -- continue with diuresis, pt has significant edema in LE b/l -- continue with supplemental O2 as needed. Plan discussed with: Patient My Orders Orders - NOHELIA PUENTES DO Procedure Category Date Status Time Furosemide Injection PHA 12/03/24 In Process (Lasix Injection) 14:00 *Dr. Janis Baxter CONS 12/03/24 Transmitted 13:59 Abdomen Limited US 12/03/24 Resulted 14:02 Date of Service: Dec 04, 2024 Billing Provider: NOHELIA PUENTES DO Common Visit Codes: [id number] INP/OBS CARE(HIGH) NOHELIA PUENTES DO Dec 04, 2024 13:38
[2024-12-04] MEDS: metOLazone 5 MG TAB PO ONE (15:39)
--- NOTE | 2024-12-04 15:54 | DVHPN2 ---
Consult Progress Note Subjective Patient reports: Feels better Other Systems: Patient denies any cardiac symptoms at time of assessment. Objective vital signs Vital Sign Date Time Temp Pulse Resp B/P (MAP) Pulse Ox O2 Delivery O2 Flow Rate FiO2 12/04/24 15:39 113/80 12/04/24 12:30 84 12/04/24 12:15 97.4 19 92 97.4 12/04/24 10:00 Nasal Cannula 3.0 12/04/24 10:00 32 Total Intake and Output 12/03/24 12/03/24 12/04/24 15:00 23:00 07:00 Intake Total 580 ml 620 ml Output Total 1000 ml 975 ml Balance -420 ml -355 ml medications Current Medications Medications Dose Ordered Sig/Adrian Route Start Time Stop Time Status Last Admin Dose Admin Aspirin 81 mg DAILY PO 12/03/24 10:00 12/04/24 10:29 81 MG Metoprolol Tartrate 25 mg BID PO 12/02/24 22:00 12/04/24 10:29 25 MG Losartan Potassium 50 mg DAILY PO 12/03/24 10:00 12/04/24 10:29 50 MG Albuterol 2.5 mg Q6HPRN PRN NEB 12/02/24 19:30 12/03/24 10:38 2.5 MG Temazepam 15 mg QHSP PRN PO 12/02/24 19:30 12/03/24 21:23 15 MG Ondansetron HCl 4 mg Q4HP PRN IV 12/02/24 19:30 Acetaminophen 650 mg Q6HP PRN PO 12/02/24 19:30 Nitroglycerin 0.4 mg Q5MINP PRN SL 12/02/24 19:30 Morphine Sulfate 2 mg Q30M PRN IV 12/02/24 19:30 Furosemide 40 mg TID IV 12/03/24 14:00 12/04/24 15:39 40 MG Examination: GENERAL:Normal, LUNGS:Normal, CVS:Normal, NEURO:Normal laboratory and microbiology Laboratory Tests 12/04/24 06:08 12/04/24 04:00 Test 12/04/24 06:08 Range/Units Serum Glucose 97 74-106 mg/dL Problem List/Assessment/Plan Problem List/Assessment/Plan Acute on chronic decompensated HFrEF, NYHA class III Biventricular heart failure Mitral and tricuspid regurgitation, mild to moderate degree Hypertension Pulmonary hypertension Acute kidney injury Methamphetamine abuse Tobacco use Medical noncompliance Morbid obesity Plan/Recommendation (Dr. Parham): * Echocardiogram reveals EF 10-15%, RVSP 45-50mmHg * Continue guideline directed medical therapy for CHF as tolerated * Consider MRA and SGLT2i with improved creatinine * Strict intake and output, daily weights, maintain fluid restriction * Aggressive diuresis as tolerated * Risk factor modifications, counseled * Adherence to medication regimen * Cessation of methamphetamine and tobacco use Patient seen and examined at bedside with . At this time, we will continue conservative medical management. The patient will be initiated on guideline directed medical therapy for CHF as tolerated. We will recommend aggressive diuresis as tolerated. If no improvement in EF within 3-6 months on GDMT, the patient may eventually qualify for ICD placement. Thank you for allowing us to care for this patient. Please call with any questions or concerns. This medical document was created using an electronic medical record system with voice recognition software and computerized dictation system. Although this document has been carefully reviewed, there might still be some phonetic and typographical errors. Occasional wrong-word or ``sound-alike substitutions may have occurred due to the inherent limitations of voice recognition software. These areas are purely typographical due to imperfections of the software programs and do not reflect any compromise in the patient's medical care. Please read the chart carefully and recognize, using context, where these substitutions have occurred. Plan discussed with: Patient Date of Service: Dec 04, 2024 Billing Provider: WYATT PARHAM MD Common Visit Codes: [id number] INP/OBS CARE(HIGH) JAMES RAYGOZA RESOURCE MANAGEMENT SPECIALIST Dec 04, 2024 15:53
--- NOTE | 2024-12-04 19:47 | DVHINCON2 ---
Date of service: Dec 03, [address] David Chung Reason for Consultation Acute kidney injury History of Present Illness David Daniels is a 59-year-old Male with a Past Medical History pertinent for COPD, Methamphetamine abuse, Tobacco use, Hypertension and Congestive Heart Failure who presented to the hospital with c/o shortness for breath x 3 days. Patient also endorses associated chest tightness, nonproductive cough and lower extremity swelling. No fever or chills. Patient admits to noncompliance with fluid restriction, at times drinking up to 3L of fluids per day. Patient is currently living out of his car. While in ED, Chest x-ray reported congestion; c ardiomegaly; no pleural effusion; no pneumothorax. EKG reveals sinus tachycardia with PVC and prolonged QTc interval. Labs were remarkable for Troponin 51. BNP level of 693.72. Creatinine 1.80. BUN 38. eGFR 43. UA is negative for infection. Patient is admitted under the care of Dr. Chung. I was asked to consult. Allergies: Coded Allergies: Banana (Verified Allergy, Unknown, 04/23/19) Cephalexin (Verified Allergy, Unknown, 02/22/12) Uncoded Allergies: GRAPES (Allergy, Unknown, 04/23/19) KIWI (Allergy, Unknown, 04/23/19) Home Meds Reported Medications Ibuprofen (Ibuprofen) 200 Mg Cap 02/22/12 Acetaminophen W/ Codeine (Tylenol W/Cod #3) 1 Tab Tb 02/22/12 Review of Systems Review of systems are currently negative otherwise addressed in HPI. H&P Exam Vital Signs/I&O Vital Sign Date Time Temp Pulse Resp B/P (MAP) Pulse Ox O2 Delivery O2 Flow Rate FiO2 12/04/24 20:50 Room Air* 0 21 12/04/24 20:50 94 12/04/24 16:15 97.0 80 19 128/91 (103) 97.0 Intake and Output 12/03/24 12/04/24 19:00 07:00 Intake Total 580 ml 620 ml Output Total 1000 ml 975 ml Balance -420 ml -355 ml Intake Oral 580 ml 620 ml Output Urine Total 1000 ml 975 ml # Bowel Movements 1 Physical Exam Vitals and nursing notes reviewed. Gen: 59-year-old male in mild distress HEENT: Normocephalic atraumatic, mucous membranes moist and pink. Neck: Cervical and supraclavicular nodes normal without enlargement, trachea is midline, thyroid gland is normal without masses. Pulmonary: Clear to auscultation and percussion bilaterally. Cardiac: Regular rate and rhythm. No murmur Abdomen: Soft, nontender, nondistended, bowel sounds present all 4 quadrants, no guarding, no rigidity, no organomegaly. Extremities: No cyanosis, clubbing, bilateral plus two lower extremity edema Neuro: Cranial nerves II through XII grossly intact, normal affect and speech, no focal motor deficits. Skin: Warm, dry, normal color and texture, no rash. Labs/Diagnostic Data Labs/Diagnostic Data Laboratory Tests Test 12/04/24 07:00 12/04/24 06:08 12/04/24 04:00 12/03/24 06:16 Range/Units Hemoglobin A1c 7.0 H <5.7 % A1C Thyroid Stimulating Hormone (TSH) 1.24 0.55-4.78 uIU/mL Sodium Level 137 139 136-145 mmol/L Potassium Level 4.1 4.1 3.5-5.1 mmol/L Chloride Level 100 103 98-107 mmol/L Carbon Dioxide Level 29 27 20-31 mmol/L Anion Gap 8 9 5-15 Blood Urea Nitrogen 41 H 34 H 9-23 mg/dL Creatinine 1.84 H 1.90 H 0.700-1.30 mg/dL Glomerular Filtration Rate Calc 41 40 >90 mL/min BUN/Creatinine Ratio 22.3 H 17.9 10.0-20.0 Serum Glucose 97 98 74-106 mg/dL Calcium Level 9.7 9.5 8.7-10.4 mg/dL Magnesium Level 2.4 1.6-2.6 mg/dL Triglycerides Level 102 < 150 mg/dL Cholesterol Level 114 < 200 mg/dL LDL Cholesterol 78 < 100 mg/dL HDL Cholesterol 26 L 40-59 mg/dL White Blood Count 7.8 4.4-10.8 10^3/uL Red Blood Count 5.11 4.5-5.90 10^6/uL Hemoglobin 15.3 13.5-17.5 g/dL Hematocrit 46.7 41.0-53.0 % Mean Corpuscular Volume 91.4 80.0-100.0 fL Mean Corpuscular Hemoglobin 30.0 28.0-32.0 pg Mean Corpuscular Hemoglobin Concent 32.8 32.0-36.0 g/dL Red Cell Distribution Width 15.4 H 11.8-14.3 % Platelet Count 274 140-450 10^3/uL Mean Platelet Volume 8.4 6.9-10.8 fL Neutrophils (%) (Auto) 67.0 37.0-80.0 % Lymphocytes (%) (Auto) 17.6 10.0-50.0 % Monocytes (%) (Auto) 11.8 0.0-12.0 % Eosinophils (%) (Auto) 3.0 0.0-7.0 % Basophils (%) (Auto) 0.6 0.0-2.0 % Neutrophils # (Auto) 5.2 1.6-8.6 10 ^3/uL Lymphocytes # (Auto) 1.4 0.4-5.4 10 ^3/uL Monocytes # (Auto) 0.9 0-1.3 10 ^3/uL Eosinophils # (Auto) 0.2 0-0.8 10 ^3/uL Basophils # (Auto) 0 0-0.2 10 ^3/uL Nucleated Red Blood Cells 0.1 % Hepatitis B Surface Antigen Negative Negative Hepatitis C Antibody Negative Negative Test 12/02/24 14:48 12/02/24 14:42 Range/Units White Blood Count 7.4 4.4-10.8 10^3/uL Red Blood Count 4.93 4.5-5.90 10^6/uL Hemoglobin 14.6 13.5-17.5 g/dL Hematocrit 45.1 41.0-53.0 % Mean Corpuscular Volume 91.6 80.0-100.0 fL Mean Corpuscular Hemoglobin 29.7 28.0-32.0 pg Mean Corpuscular Hemoglobin Concent 32.4 32.0-36.0 g/dL Red Cell Distribution Width 15.6 H 11.8-14.3 % Platelet Count 278 140-450 10^3/uL Mean Platelet Volume 8.0 6.9-10.8 fL Neutrophils (%) (Auto) 70.4 37.0-80.0 % Lymphocytes (%) (Auto) 16.0 10.0-50.0 % Monocytes (%) (Auto) 11.2 0.0-12.0 % Eosinophils (%) (Auto) 1.8 0.0-7.0 % Basophils (%) (Auto) 0.6 0.0-2.0 % Neutrophils # (Auto) 5.2 1.6-8.6 10 ^3/uL Lymphocytes # (Auto) 1.2 0.4-5.4 10 ^3/uL Monocytes # (Auto) 0.8 0-1.3 10 ^3/uL Eosinophils # (Auto) 0.1 0-0.8 10 ^3/uL Basophils # (Auto) 0 0-0.2 10 ^3/uL Nucleated Red Blood Cells 0.3 % Sodium Level 138 136-145 mmol/L Potassium Level 4.7 3.5-5.1 mmol/L Chloride Level 107 98-107 mmol/L Carbon Dioxide Level 22 20-31 mmol/L Anion Gap 9 5-15 Blood Urea Nitrogen 38 H 9-23 mg/dL Creatinine 1.80 H 0.700-1.30 mg/dL Glomerular Filtration Rate Calc 43 >90 mL/min BUN/Creatinine Ratio 21.1 H 10.0-20.0 Serum Glucose 93 74-106 mg/dL Calcium Level 10.0 8.7-10.4 mg/dL Troponin I High Sensitivity 51 </=54 ng/L B-Type Natriuretic Peptide 693.72 0-100 pg/mL Urine Color Light-yellow Yellow Urine Clarity Clear Clear Urine pH 5.0 5.0-9.0 Urine Specific [place] 1.008 1.001-1.035 Urine Protein Negative Negative Urine Ketones Negative Negative Urine Blood Negative Negative /uL Urine Nitrite Negative Negative Urine Bilirubin Negative Negative Urine Urobilinogen Normal Negative mg/dL Urine Leukocyte Esterase Negative Negative /uL Urine RBC None seen 0 - 3 /hpf Urine Microscopic WBC < 1 0-3 /HPF Urine Squamous Epithelial Cells None seen <5 /hpf Urine Bacteria None seen None Seen /hpf Urine Hyaline Casts Few 0 - 2 /lpf Urine Glucose Normal Normal mg/dL Microbiology Date/Time Source Procedure Growth Status 12/03/24 11:20 Nose MRSA Screen - Final Methicillin Resistant S.aureus Complete Assessment Acute on chronic congestive heart failure TSEPHANIE Hypertension COPD Possible drug-induced cardiomyopathy Plan/Recommendation Agreement with your ongoing assessment and plan of care. Cardiology following. Daily lab monitoring to include renal function and electrolytes. Electrolyte replacement prn. Diuretics with Lasix IV. Strict Intake/Output. Echocardiogram ordered/pending. Supplemental oxygen to keep sats >92%. Fluid restriction 1200 mL. Additional plan as per the hospital course. Plan discussed with: Patient, Other (RN) MARIA LUISA GRAY DO Dec 04, 2024 19:47
--- NOTE | 2024-12-04 21:46 | DVHPN2 ---
Progress Note - Dictate Date Seen: Dec 04, 2024 Has the PT tested + for MRSA If YES, has PT been informed?: Yes Medical Necessity Reason Pt with a Central, PICC or Fol: No Subjective Patient was seen and evaluated in follow up. No acute events overnight. Patient denies any cardiac symptoms. Stable on 3L NC. Echo reported EF 10-15%; RSVP 45-50mmHg. AM labs are remarkable for Creatinine 1.84 with BUN of 41. eGFR 41. vital signs Vital Sign Date Time Temp Pulse Resp B/P (MAP) Pulse Ox O2 Delivery O2 Flow Rate FiO2 12/04/24 20:50 Room Air* 0 21 12/04/24 20:50 94 12/04/24 16:15 97.0 80 19 128/91 (103) 97.0 Total Intake and Output 12/03/24 12/03/24 12/04/24 15:00 23:00 07:00 Intake Total 580 ml 620 ml Output Total 1000 ml 975 ml Balance -420 ml -355 ml medications Current Medications Medications Dose Ordered Sig/Adrian Route Start Time Stop Time Status Last Admin Dose Admin Aspirin 81 mg DAILY PO 12/03/24 10:00 12/04/24 10:29 Metoprolol Tartrate 25 mg BID PO 12/02/24 22:00 12/04/24 10:29 Losartan Potassium 50 mg DAILY PO 12/03/24 10:00 12/04/24 10:29 Albuterol 2.5 mg Q6HPRN PRN NEB 12/02/24 19:30 12/03/24 10:38 Temazepam 15 mg QHSP PRN PO 12/02/24 19:30 12/03/24 21:23 Ondansetron HCl 4 mg Q4HP PRN IV 12/02/24 19:30 Acetaminophen 650 mg Q6HP PRN PO 12/02/24 19:30 Nitroglycerin 0.4 mg Q5MINP PRN SL 12/02/24 19:30 Morphine Sulfate 2 mg Q30M PRN IV 12/02/24 19:30 Furosemide 40 mg TID IV 12/03/24 14:00 12/04/24 15:39 objective Vitals and nursing notes reviewed. Gen: In no acute distress. HEENT: Normocephalic atraumatic, mucous membranes moist and pink. Neck: Cervical and supraclavicular nodes normal without enlargement Pulmonary: Clear to auscultation and percussion bilaterally. Cardiac: Regular rate and rhythm. No murmur Abdomen: Soft, nontender, nondistended, bowel sounds present all 4 quadrants, no guarding, no rigidity, no organomegaly. Extremities: No cyanosis, clubbing, bilateral plus two lower extremity edema Neuro: Cranial nerves II through XII grossly intact, normal affect and speech, no focal motor deficits. Skin: Warm, dry, normal color and texture, no rash. laboratory and microbiology Laboratory Tests 12/04/24 06:08 12/04/24 04:00 Test 12/04/24 06:08 Range/Units Serum Glucose 97 74-106 mg/dL Problem List Acute on chronic congestive heart failure STEPHANIE Hypertension COPD Possible drug-induced cardiomyopathy Assessment/Plan Agree with current supportive medical care. Cardiology following. Daily lab monitoring to include renal function and electrolytes. Electrolyte replacement prn. Diuretics with Lasix 40 mg IV TID. Strict Intake/Output. Daily weights. ASA 81 mg daily. Losartan Potassium 50 mg PO daily. Supplemental oxygen to keep sats >92%. Fluid restriction 1200 mL. Pain management prn. Additional plan as per the hospital course. Plan discussed with: Patient, Other (RN) MARIA LUISA GRAY DO Dec 04, 2024 21:46
[2024-12-05] VITALS (12 sets, daily range): BP systolic 102–131; BP diastolic 64–87; PULSE 69–89; RESP 18–19; TEMP 97.6–98.5; O2SAT 92–99
[2024-12-05 06:02] LABS: Basophils # (auto) 0 10 ^3/uL (0-0.2); Basophils % (auto) 0.5 % (0.0-2.0); Eosinophils # (auto) 0.3 10 ^3/uL (0-0.8); Eosinophils % (auto) 3.2 % (0.0-7.0); Hematocrit 48.5 % (41.0-53.0); Hemoglobin 15.7 g/dL (13.5-17.5); Lymphocytes # (auto) 1.1 10 ^3/uL (0.4-5.4); Lymphocytes % (auto) 12.7 % (10.0-50.0); Mean Corpuscular Hemoglobin 29.6 pg (28.0-32.0); Mean Corpuscular Hgb Conc. 32.5 g/dL (32.0-36.0); Mean Corpuscular Volume 91.3 fL (80.0-100.0); Monocytes % (auto) 11.4 % (0.0-12.0); Neutrophils # (auto) 6.5 10 ^3/uL (1.6-8.6); Neutrophils % (auto) 72.2 % (37.0-80.0); Platelet Count (auto) 270 10^3/uL (140-450); Red Blood Cells 5.31 10^6/uL (4.5-5.90); Red Cell Distribution Width 15.2 % (11.8-14.3)
[2024-12-05 06:15] LABS: Calcium 10.2 mg/dL (8.7-10.4); Sodium 137 mmol/L (136-145)
[2024-12-05 06:16] LABS: Anion Gap 9 (5-15)
[2024-12-05 06:21] LABS: BUN/Creatinine Ratio 21.1 (10.0-20.0); Blood Urea Nitrogen 39 mg/dL (9-23); Carbon Dioxide 36 mmol/L (20-31); Chloride 92 mmol/L (98-107); Glucose 143 mg/dL (74-106)
--- NOTE | 2024-12-05 15:27 | DVHPN2 ---
Consult Progress Note Subjective Patient reports: Feels better Other Systems: The patient denies any cardiac symptoms at time of assessment Objective vital signs Vital Sign Date Time Temp Pulse Resp B/P (MAP) Pulse Ox O2 Delivery O2 Flow Rate FiO2 12/05/24 14:44 131/87 12/05/24 13:00 98.1 69 19 99 98.1 12/05/24 10:00 Nasal Cannula* 3 32 Total Intake and Output 12/04/24 12/04/24 12/05/24 15:00 23:00 07:00 Intake Total 710 ml 572 ml Output Total 2650 ml 1200 ml Balance -1940 ml -628 ml medications Current Medications Medications Dose Ordered Sig/Adrian Route Start Time Stop Time Status Last Admin Dose Admin Aspirin 81 mg DAILY PO 12/03/24 10:00 12/05/24 09:05 81 MG Metoprolol Tartrate 25 mg BID PO 12/02/24 22:00 12/05/24 09:05 25 MG Losartan Potassium 50 mg DAILY PO 12/03/24 10:00 12/05/24 09:05 50 MG Albuterol 2.5 mg Q6HPRN PRN NEB 12/02/24 19:30 12/03/24 10:38 2.5 MG Temazepam 15 mg QHSP PRN PO 12/02/24 19:30 12/03/24 21:23 15 MG Ondansetron HCl 4 mg Q4HP PRN IV 12/02/24 19:30 Acetaminophen 650 mg Q6HP PRN PO 12/02/24 19:30 Nitroglycerin 0.4 mg Q5MINP PRN SL 12/02/24 19:30 Morphine Sulfate 2 mg Q30M PRN IV 12/02/24 19:30 Furosemide 40 mg TID IV 12/03/24 14:00 12/05/24 14:44 40 MG Examination: GENERAL:Normal, LUNGS:Normal, CVS:Normal, NEURO:Normal laboratory and microbiology Laboratory Tests 12/05/24 04:44 Test 12/05/24 04:44 Range/Units Serum Glucose 143 H 74-106 mg/dL Problem List/Assessment/Plan Problem List/Assessment/Plan Acute on chronic decompensated HFrEF, NYHA class III Biventricular heart failure Mitral and tricuspid regurgitation, mild to moderate degree Hypertension Pulmonary hypertension Acute kidney injury Methamphetamine abuse Tobacco use Medical noncompliance Morbid obesity Plan/Recommendation (Dr. Parham): * Echocardiogram reveals EF 10-15%, RVSP 45-50mmHg * Continue guideline directed medical therapy for CHF as tolerated * Consider MRA and SGLT2i with improved creatinine * Strict intake and output, daily weights, maintain fluid restriction * Aggressive diuresis as tolerated * Risk factor modifications, counseled * Adherence to medication regimen * Cessation of methamphetamine and tobacco use Patient seen and examined at bedside with . At this time, we will continue conservative medical management. The patient will be initiated on guideline directed medical therapy for CHF as tolerated. We will recommend aggressive diuresis as tolerated. If no improvement in EF within 3-6 months on GDMT, the patient may eventually qualify for ICD placement. Thank you for allowing us to care for this patient. Please call with any questions or concerns. This medical document was created using an electronic medical record system with voice recognition software and computerized dictation system. Although this document has been carefully reviewed, there might still be some phonetic and typographical errors. Occasional wrong-word or ``sound-alike substitutions may have occurred due to the inherent limitations of voice recognition software. These areas are purely typographical due to imperfections of the software programs and do not reflect any compromise in the patient's medical care. Please read the chart carefully and recognize, using context, where these substitutions have occurred. Plan discussed with: Patient Date of Service: Dec 05, 2024 Billing Provider: WYATT PARHAM MD Common Visit Codes: [id number] INP/OBS CARE(HIGH) JAMES RAYGOZA [facility] Dec 05, 2024 15:27
--- NOTE | 2024-12-05 20:22 | DVHPN2 ---
Progress Note - Dictate Date Seen: Dec 05, 2024 Has the PT tested + for MRSA If YES, has PT been informed?: Yes Medical Necessity Reason Pt with a Central, PICC or Fol: No Subjective Patient was seen and evaluated in follow up. No acute events overnight. Patient reports feeling better. No new complaints. AM labs are remarkable Creatinine 1.85 with BUN 39. eGFR 41. Cl 92. vital signs Vital Sign Date Time Temp Pulse Resp B/P (MAP) Pulse Ox O2 Delivery O2 Flow Rate FiO2 12/05/24 17:00 97.8 84 19 117/67 (84) 93 97.8 12/05/24 10:00 Nasal Cannula* 3 32 Total Intake and Output 12/04/24 12/04/24 12/05/24 15:00 23:00 07:00 Intake Total 710 ml 572 ml Output Total 2650 ml 1200 ml Balance -1940 ml -628 ml medications Current Medications Medications Dose Ordered Sig/Adrian Route Start Time Stop Time Status Last Admin Dose Admin Aspirin 81 mg DAILY PO 12/03/24 10:00 12/05/24 09:05 81 MG Metoprolol Tartrate 25 mg BID PO 12/02/24 22:00 12/05/24 09:05 25 MG Losartan Potassium 50 mg DAILY PO 12/03/24 10:00 12/05/24 09:05 50 MG Albuterol 2.5 mg Q6HPRN PRN NEB 12/02/24 19:30 12/03/24 10:38 2.5 MG Temazepam 15 mg QHSP PRN PO 12/02/24 19:30 12/03/24 21:23 15 MG Ondansetron HCl 4 mg Q4HP PRN IV 12/02/24 19:30 Acetaminophen 650 mg Q6HP PRN PO 12/02/24 19:30 Nitroglycerin 0.4 mg Q5MINP PRN SL 12/02/24 19:30 Morphine Sulfate 2 mg Q30M PRN IV 12/02/24 19:30 Furosemide 40 mg TID IV 12/03/24 14:00 12/05/24 14:44 40 MG objective Vitals and nursing notes reviewed. Gen: In no acute distress. HEENT: Normocephalic atraumatic, mucous membranes moist and pink. Neck: Cervical and supraclavicular nodes normal without enlargement Pulmonary: Clear to auscultation and percussion bilaterally. Cardiac: Regular rate and rhythm. No murmur Abdomen: Soft, nontender, nondistended, bowel sounds present all 4 quadrants, no guarding, no rigidity, no organomegaly. Extremities: No cyanosis, clubbing, bilateral plus two lower extremity edema Neuro: Cranial nerves II through XII grossly intact, normal affect and speech, no focal motor deficits. Skin: Warm, dry, normal color and texture, no rash. laboratory and microbiology Laboratory Tests 12/05/24 04:44 Test 12/05/24 04:44 Range/Units Serum Glucose 143 H 74-106 mg/dL Problem List Acute on chronic congestive heart failure STEPHANIE Hypertension COPD Possible drug-induced cardiomyopathy Assessment/Plan Agree with current supportive medical care. Cardiology following. Daily lab monitoring to include renal function and electrolytes. Electrolyte replacement prn. Diuretics with Lasix 40 mg IV TID. Strict Intake/Output. Daily weights. ASA 81 mg daily. Losartan Potassium 50 mg PO daily. Supplemental oxygen to keep sats >92%. Fluid restriction 1200 mL. Pain management prn. Additional plan as per the hospital course. Plan discussed with: Patient, Other (RN) MARIA LUISA GRAY DO Dec 05, 2024 20:22
[2024-12-06] VITALS (9 sets, daily range): BP systolic 90–119; BP diastolic 51–89; PULSE 74–93; RESP 16–18; TEMP 97.8–98.7; O2SAT 88–97
[2024-12-06 06:49] LABS: Basophils # (auto) 0.1 10 ^3/uL (0-0.2); Basophils % (auto) 0.7 % (0.0-2.0); Eosinophils # (auto) 0.3 10 ^3/uL (0-0.8); Monocytes # (auto) 1.2 10 ^3/uL (0-1.3); Neutrophils # (auto) 5.5 10 ^3/uL (1.6-8.6); Red Blood Cells 5.97 10^6/uL (4.5-5.90)
[2024-12-06 06:52] LABS: Eosinophils % (auto) 3.2 % (0.0-7.0); Hematocrit 53.9 % (41.0-53.0); Mean Corpuscular Hemoglobin 30.2 pg (28.0-32.0); Mean Corpuscular Hgb Conc. 33.5 g/dL (32.0-36.0); Mean Corpuscular Volume 90.2 fL (80.0-100.0); Monocytes % (auto) 14.7 % (0.0-12.0); Neutrophils % (auto) 69.4 % (37.0-80.0); Nucleated Red Blood Cells % 0.1 %; Platelet Count (auto) 273 10^3/uL (140-450); White Blood Cell 7.9 10^3/uL (4.4-10.8)
[2024-12-06 07:02] LABS: Anion Gap 13 (5-15)
[2024-12-06 07:07] LABS: BUN/Creatinine Ratio 23.2 (10.0-20.0)
[2024-12-06 07:08] LABS: Blood Urea Nitrogen 38 mg/dL (9-23); Calcium 10.7 mg/dL (8.7-10.4); Carbon Dioxide 35 mmol/L (20-31); Chloride 88 mmol/L (98-107); Glucose 110 mg/dL (74-106); Sodium 136 mmol/L (136-145)
[2024-12-06] MEDS: METOPROLOL SUCCINATE XL 50 MG TAB PO SCH (09:30)
--- NOTE | 2024-12-06 10:48 | DVHPN2 ---
Consult Progress Note Subjective Patient reports: Feels better Other Systems: Patient denies any cardiac symptoms at time of assessment. Objective vital signs Vital Sign Date Time Temp Pulse Resp B/P (MAP) Pulse Ox O2 Delivery O2 Flow Rate FiO2 12/06/24 09:30 89 108/70 12/06/24 09:26 97.9 17 88 97.9 12/06/24 08:00 Nasal Cannula* 3 32 Total Intake and Output 12/05/24 12/05/24 12/06/24 15:00 23:00 07:00 Intake Total 370 ml 320 ml Output Total 2630 ml 2000 ml Balance -2260 ml -1680 ml medications Current Medications Medications Dose Ordered Sig/Adrian Route Start Time Stop Time Status Last Admin Dose Admin Aspirin 81 mg DAILY PO 12/03/24 10:00 12/06/24 09:21 81 MG Losartan Potassium 50 mg DAILY PO 12/03/24 10:00 12/06/24 09:21 50 MG Albuterol 2.5 mg Q6HPRN PRN NEB 12/02/24 19:30 12/03/24 10:38 2.5 MG Temazepam 15 mg QHSP PRN PO 12/02/24 19:30 12/03/24 21:23 15 MG Ondansetron HCl 4 mg Q4HP PRN IV 12/02/24 19:30 Acetaminophen 650 mg Q6HP PRN PO 12/02/24 19:30 Nitroglycerin 0.4 mg Q5MINP PRN SL 12/02/24 19:30 Morphine Sulfate 2 mg Q30M PRN IV 12/02/24 19:30 Furosemide 40 mg TID IV 12/03/24 14:00 12/06/24 06:03 40 MG Metoprolol Succinate 50 mg DAILY PO 12/06/24 10:00 12/06/24 09:30 50 MG Examination: GENERAL:Normal, LUNGS:Normal, CVS:Normal, NEURO:Normal laboratory and microbiology Laboratory Tests 12/06/24 04:48 Test 12/06/24 04:48 Range/Units Serum Glucose 110 H 74-106 mg/dL Problem List/Assessment/Plan Problem List/Assessment/Plan Acute on chronic decompensated HFrEF, NYHA class III Biventricular heart failure Mitral and tricuspid regurgitation, mild to moderate degree Hypertension Pulmonary hypertension Acute kidney injury Methamphetamine abuse Tobacco use Medical noncompliance Morbid obesity Plan/Recommendation (Dr. Parham): * Echocardiogram reveals EF 10-15%, RVSP 45-50mmHg * Continue guideline directed medical therapy for CHF as tolerated * Consider MRA and SGLT2i with improved creatinine * Strict intake and output, daily weights, maintain fluid restriction * Aggressive diuresis as tolerated * Risk factor modifications, counseled * Adherence to medication regimen * Cessation of methamphetamine and tobacco use Patient seen and examined at bedside with . At this time, we will continue conservative medical management. The patient will be initiated on guideline directed medical therapy for CHF as tolerated. We will recommend aggressive diuresis as tolerated. If no improvement in EF within 3-6 months on GDMT, the patient may eventually qualify for ICD placement. There is no further inpatient cardiac workup indicated at this time. Patient to follow up with manager payer in the outpatient setting within 1-2 weeks post discharge. Thank you for allowing us to care for this patient. Please call with any questions or concerns. This medical document was created using an electronic medical record system with voice recognition software and computerized dictation system. Although this document has been carefully reviewed, there might still be some phonetic and typographical errors. Occasional wrong-word or ``sound-alike substitutions may have occurred due to the inherent limitations of voice recognition software. These areas are purely typographical due to imperfections of the software programs and do not reflect any compromise in the patient's medical care. Please read the chart carefully and recognize, using context, where these substitutions have occurred. Plan discussed with: Patient Date of Service: Dec 06, 2024 Billing Provider: WYATT PARHAM MD Common Visit Codes: [id number] INP/OBS CARE(HIGH) JAMES RAYGOZA DIRECTOR OF [facility]ULATORY AFFAIRS Dec 06, 2024 10:48
--- NOTE | 2024-12-06 14:12 | DVHPN2 ---
Reviewed: Care Plan, H&P Changes from previous H/P or p: No Changes General: Per HPI Objective Vitals Vital Signs Date Time Temp Pulse Resp B/P (MAP) Pulse Ox O2 Delivery O2 Flow Rate FiO2 12/06/24 10:00 97 Nasal Cannula* 3 32 12/06/24 09:30 89 108/70 12/06/24 09:26 97.9 17 97.9 Intake/Output Intake and Output 12/06/24 07:00 Intake Total 690 ml Output Total 4630 ml Balance -3940 ml Intake Oral 690 ml Output Urine Total 4630 ml # Bowel Movements 2 General Appearance: Alert, Oriented X3, Cooperative Lungs: Normal air movement Cardiovascular: Regular rate, Normal S1, Normal S2 Medications Current Medications Medications Dose Ordered Sig/Adrian Route Start Time Stop Time Status Last Admin Dose Admin Aspirin 81 mg DAILY PO 12/03/24 10:00 12/06/24 09:21 81 MG Losartan Potassium 50 mg DAILY PO 12/03/24 10:00 12/06/24 09:21 50 MG Albuterol 2.5 mg Q6HPRN PRN NEB 12/02/24 19:30 12/03/24 10:38 2.5 MG Temazepam 15 mg QHSP PRN PO 12/02/24 19:30 12/03/24 21:23 15 MG Ondansetron HCl 4 mg Q4HP PRN IV 12/02/24 19:30 Acetaminophen 650 mg Q6HP PRN PO 12/02/24 19:30 Nitroglycerin 0.4 mg Q5MINP PRN SL 12/02/24 19:30 Morphine Sulfate 2 mg Q30M PRN IV 12/02/24 19:30 Furosemide 40 mg TID IV 12/03/24 14:00 12/06/24 06:03 40 MG Metoprolol Succinate 50 mg DAILY PO 12/06/24 10:00 12/06/24 09:30 50 MG Laboratory Results Laboratory Tests 12/06/24 04:48 Chemistry Test 12/06/24 04:48 Calcium Level 10.7 mg/dL (8.7-10.4) H Urinalysis Test 12/02/24 14:42 Urine Color Light-yellow (Yellow) Urine Clarity Clear (Clear) Urine pH 5.0 (5.0-9.0) Urine Specific [place] 1.008 (1.001-1.035) Urine Protein Negative (Negative) Urine Ketones Negative (Negative) Urine Blood Negative /uL (Negative) Urine Nitrite Negative (Negative) Urine Bilirubin Negative (Negative) Urine Urobilinogen Normal mg/dL (Negative) Urine Leukocyte Esterase Negative /uL (Negative) Urine RBC None seen /hpf (0 - 3) Urine Microscopic WBC < 1 /HPF (0-3) Urine Squamous Epithelial Cells None seen /hpf (<5) Urine Bacteria None seen /hpf (None Seen) Urine Hyaline Casts Few /lpf (0 - 2) Urine Glucose Normal mg/dL (Normal) Microbiology Microbiology Date/Time Source Procedure Growth Status 12/03/24 11:20 Nose MRSA Screen - Final Methicillin Resistant S.aureus Complete Labs and/or images reviewed: Labs reviewed by me, Image(s) reviewed by me Assessment/Plan Assessment/Plan Acute on chronic congestive heart failure Hypertension COPD Possible drug-induced cardiomyopathy STEPHANIE cardiorenal syndrome 12/04/2024 -- continue with diuresis, pt has significant edema in LE b/l -- continue with supplemental O2 as needed. 12/05/2024: continue with diuresis edema improving resp status improving stephanie is stable Plan discussed with: Patient Date of Service: Dec 05, 2024 Billing Provider: NOHELIA PUENTES DO Common Visit Codes: [id number] INP/OBS CARE(HIGH) NOHELIA PUENTES DO Dec 06, 2024 14:12
[2024-12-06] MEDS ORDERED: FURO40TA4 PO (14:18)
[2024-12-06] MEDS ORDERED: ASPI-325 PO (14:18)
--- NOTE | 2024-12-06 14:19 | DVHDS2 ---
Discharge Summary Date of Admission Dec 02, 2024 at 19:30 Date of Discharge: Dec 06, 2024 Labs/Diagnostic Data: Laboratory Results Test 12/06/24 04:48 12/04/24 07:00 12/04/24 06:08 12/03/24 06:16 White Blood Count 7.9 10^3/uL (4.4-10.8) Red Blood Count 5.97 10^6/uL (4.5-5.90) Hemoglobin 18.0 g/dL (13.5-17.5) Hematocrit 53.9 % (41.0-53.0) Mean Corpuscular Volume 90.2 fL (80.0-100.0) Mean Corpuscular Hemoglobin 30.2 pg (28.0-32.0) Mean Corpuscular Hemoglobin Concent 33.5 g/dL (32.0-36.0) Red Cell Distribution Width 15.0 % (11.8-14.3) Platelet Count 273 10^3/uL (140-450) Mean Platelet Volume 8.3 fL (6.9-10.8) Neutrophils (%) (Auto) 69.4 % (37.0-80.0) Lymphocytes (%) (Auto) 12.0 % (10.0-50.0) Monocytes (%) (Auto) 14.7 % (0.0-12.0) Eosinophils (%) (Auto) 3.2 % (0.0-7.0) Basophils (%) (Auto) 0.7 % (0.0-2.0) Neutrophils # (Auto) 5.5 10 ^3/uL (1.6-8.6) Lymphocytes # (Auto) 1.0 10 ^3/uL (0.4-5.4) Monocytes # (Auto) 1.2 10 ^3/uL (0-1.3) Eosinophils # (Auto) 0.3 10 ^3/uL (0-0.8) Basophils # (Auto) 0.1 10 ^3/uL (0-0.2) Nucleated Red Blood Cells 0.1 % Sodium Level 136 mmol/L (136-145) Potassium Level 3.0 mmol/L (3.5-5.1) Chloride Level 88 mmol/L (98-107) Carbon Dioxide Level 35 mmol/L (20-31) Anion Gap 13 (5-15) Blood Urea Nitrogen 38 mg/dL (9-23) Creatinine 1.64 mg/dL (0.700-1.30) Glomerular Filtration Rate Calc 48 mL/min (>90) BUN/Creatinine Ratio 23.2 (10.0-20.0) Serum Glucose 110 mg/dL (74-106) Calcium Level 10.7 mg/dL (8.7-10.4) Hemoglobin A1c 7.0 % A1C (<5.7) Thyroid Stimulating Hormone (TSH) 1.24 uIU/mL (0.55-4.78) Magnesium Level 2.4 mg/dL (1.6-2.6) Triglycerides Level 102 mg/dL (< 150) Cholesterol Level 114 mg/dL (< 200) LDL Cholesterol 78 mg/dL (< 100) HDL Cholesterol 26 mg/dL (40-59) Hepatitis B Surface Antigen Negative (Negative) Hepatitis C Antibody Negative (Negative) Test 12/02/24 14:48 12/02/24 14:42 Troponin I High Sensitivity 51 ng/L (</=54) B-Type Natriuretic Peptide 693.72 pg/mL (0-100) Urine Color Light-yellow (Yellow) Urine Clarity Clear (Clear) Urine pH 5.0 (5.0-9.0) Urine Specific [place] 1.008 (1.001-1.035) Urine Protein Negative (Negative) Urine Ketones Negative (Negative) Urine Blood Negative /uL (Negative) Urine Nitrite Negative (Negative) Urine Bilirubin Negative (Negative) Urine Urobilinogen Normal mg/dL (Negative) Urine Leukocyte Esterase Negative /uL (Negative) Urine RBC None seen /hpf (0 - 3) Urine Microscopic WBC < 1 /HPF (0-3) Urine Squamous Epithelial Cells None seen /hpf (<5) Urine Bacteria None seen /hpf (None Seen) Urine Hyaline Casts Few /lpf (0 - 2) Urine Glucose Normal mg/dL (Normal) Other Laboratory Tests 12/06/24 04:48 Brief Hx & Hospital Course: 59-year-old male with a history of COPD and congestive heart failure presents for evaluation of shortness for breath. Patient reports a three day history of worsening shortness for breath with associated chest tightness, nonproductive cough and lower extremity swelling. Denies fever or chills. No other acute complaints reported. Acute on chronic congestive heart failure Hypertension COPD Possible drug-induced cardiomyopathy STEPHANIE cardiorenal syndrome 12/04/2024 -- continue with diuresis, pt has significant edema in LE b/l -- continue with supplemental O2 as needed. 12/05/2024: continue with diuresis edema improving resp status improving stephanie is stable 12/06/2024: discharged to home with oral Lasix Condition at Discharge: Good Final Diagnosis/Problems List see above Discharge Disposition: Home Discharge Instruct/Medications Diet: Cardiac 2g Na,low cholest Activity: No Restrictions, As Tolerated Discharge Statement: "Patient was advised to return to the ER or call 911 if any headaches, dizziness, shortness of breath, chest pain, abdominal pain, bleeding, fevers, or worsening of medical condition. Patient was counseled about treatment plan, medications, possible side effects, patientverbalized understanding. All questions were answered to the best of my ability. This discharge took greater then 30 minutes in planning, reviewing documentation, counseling the patient, and discussing with other team members." ASSESSMENT ASSESSMENT Assessment Date of Service: Dec 06, 2024 Billing Provider: NOHELIA PUENTES DO Common Visit Codes: [id number] DISCH DAY >30min NOHELIA PUENTES DO Dec 06, 2024 14:19
[2024-12-06] MEDS: POTASSIUM CHL 20 Meq TABLET PO ONE (15:13)
--- NOTE | 2024-12-06 19:27 | DVHPN2 ---
Progress Note - Dictate Date Seen: Dec 06, 2024 Has the PT tested + for MRSA If YES, has PT been informed?: Yes Medical Necessity Reason Pt with a Central, PICC or Fol: No Subjective Patient was seen and evaluated in follow up. Patient reports feeling better. No new complaints. Renal function labs are stable. Potassium was replaced. vital signs Vital Sign Date Time Temp Pulse Resp B/P (MAP) Pulse Ox O2 Delivery O2 Flow Rate FiO2 12/06/24 16:42 98.0 86 16 90 12/06/24 16:00 90/51 (64) 12/06/24 10:00 Nasal Cannula* 3 32 Total Intake and Output 12/05/24 12/05/24 12/06/24 15:00 23:00 07:00 Intake Total 370 ml 320 ml Output Total 2630 ml 2000 ml Balance -2260 ml -1680 ml objective Vitals and nursing notes reviewed. Gen: In no acute distress. HEENT: Normocephalic atraumatic, mucous membranes moist and pink. Neck: Cervical and supraclavicular nodes normal without enlargement Pulmonary: Clear to auscultation and percussion bilaterally. Cardiac: Regular rate and rhythm. No murmur Abdomen: Soft, nontender, nondistended, bowel sounds present all 4 quadrants, no guarding, no rigidity, no organomegaly. Extremities: No cyanosis, clubbing, bilateral plus two lower extremity edema Neuro: Cranial nerves II through XII grossly intact, normal affect and speech, no focal motor deficits. Skin: Warm, dry, normal color and texture, no rash. laboratory and microbiology Laboratory Tests 12/06/24 04:48 Test 12/06/24 04:48 Range/Units Serum Glucose 110 H 74-106 mg/dL Problem List Acute on chronic congestive heart failure STEPHANIE Hypertension COPD Possible drug-induced cardiomyopathy Assessment/Plan DC planning in progress. Cleared for discharge from Nephrology standpoint with outpatient follow up recommended. Plan discussed with: Patient, Other (RN) MARIA LUISA GRAY DO Dec 06, 2024 19:27
[2024-12-06] MEDS ORDERED: FUROSEMIDE 40 MG/4 ML VIAL IV SCH (22:00)
== END 2024-12-06 17:15 | disposition home or self-care (01) | DRG 133 ==
LOC: ER 14:03 → OVERFLOW 19:30 → WEST WING 19:34 → CENTRAL 12-04 19:30
PROVIDERS: ADMIT Internal Medicine; ATTEND Internal Medicine
DX: J96.00 Acute respiratory failure, unspecified whether with hypoxia or hypercapnia (principal); N17.0 Acute kidney failure with tubular necrosis; I50.43 Acute on chronic combined systolic (congestive) and diastolic (congestive) heart failure; N17.9 Acute kidney failure, unspecified; I27.20 Pulmonary hypertension, unspecified; I13.0 Hypertensive heart and chronic kidney disease with heart failure and stage 1 through stage 4 chronic kidney disease, or unspecified chronic kidney disease; J44.9 Chronic obstructive pulmonary disease, unspecified; I50.82 Biventricular heart failure; E66.01 Morbid (severe) obesity due to excess calories; F15.10 Other stimulant abuse, uncomplicated; F17.210 Nicotine dependence, cigarettes, uncomplicated; I08.1 Rheumatic disorders of both mitral and tricuspid valves; I49.3 Ventricular premature depolarization; N18.9 Chronic kidney disease, unspecified; Z88.1 Allergy status to other antibiotic agents; Z91.119 Patient's noncompliance with dietary regimen due to unspecified reason; Z91.199 Patient's noncompliance with other medical treatment and regimen due to unspecified reason; Z59.02 Unsheltered homelessness; Z79.82 Long term (current) use of aspirin; Z88.8 Allergy status to other drugs, medicaments and biological substances; Z91.018 Allergy to other foods; Z79.899 Other long term (current) drug therapy; Z68.33 Body mass index [BMI] 33.0-33.9, adult
CPT/HCPCS: 36415; 71045; 76705; 80048; 80061; 81001; 83036; 83735; 83880; 84443; 84484; 85025; 86803; 87081; 87340; 93005; 93306; 94640; 96374; 99291; G0378